=== PATIENT | male | born 1975 | race Hispanic/Latino ===

== ENCOUNTER 2021-10-08 19:22 | Emergency (ER) | payer OTHER, SELFPAY ==
[2021-10-08 19:32] VITALS: BP 108/67; PULSE 91; RESP 18; TEMP 37.4; O2SAT 100
--- NOTE | 2021-10-08 19:37 | ED.SKABFB ---
HPI - Skin/Abscess/Foreign Bdy General Chief complaint: Skin/Abscess/Foreign Body Stated complaint: right 3rd digit toe pain Time Seen by Provider: 10/08/21 19:37 Source: patient Mode of arrival: ambulatory Limitations: no limitations History of Present Illness HPI narrative: 46 y/o male with a history of diabetes, neuropathy, CKD presented for c/o right foot toe concern. Endorses right third toe blood blister for about 2 weeks, states he was in the shower today and it popped and blood quite a lot in the shower today. Since then he endorses concern about infection stating he lost all of his toes on the left foot in 2019 due to diabetes. Denies pain, due to neuropathy. Endorses occasional fevers and chills. Endorses decreased appetite, he states his blood sugar was 235 today and has not eaten. Taking medication as directed. Denies nausea, vomiting, dizziness, shortness of breath or cough. MD complaint: rash Related Data Home Medications Medication Instructions Recorded Confirmed fenofibrate nanocrystallized 145 mg PO DAILY 10/08/21 10/08/21 insulin lispro 1 sliding scale dose SUBCUT 10/08/21 10/08/21 DIRECTED lisinopril-hydrochlorothiazide 1 tablet PO DAILY 10/08/21 10/08/21 metformin 1,000 mg PO BID 10/08/21 10/08/21 Allergies Allergy/AdvReac Type Severity Reaction Status Date / Time No Known Allergies Allergy Verified 10/08/21 19:48 Review of Systems Review of Systems: CONSTITUTIONAL: Endorses fever, chills, sweats. EYES: Denies visual changes, redness, or discharge. ENT: Denies rhinorrhea, congestion, sore throat, or otalgia. CARDIOVASCULAR: Denies chest pain, palpitations, or edema. RESPIRATORY: Denies cough or dyspnea. GASTROINTESTINAL: Denies abdominal pain, nausea, vomiting, or diarrhea. GENITOURINARY: Denies dysuria or hematuria. SKIN: Wound right 3rd toe MUSCULOSKELETAL: Denies back pain, joint pain, or myalgia. NEUROLOGIC: Denies headache, numbness, tingling, or weakness. PSYCH: Denies depression or anxiety. PMFSH Comments At time of signature, I have reviewed and agree with nursing past medical, surgical, social and family history unless otherwise noted. Please see nursing chart for further information. There is no relevant family history pertinent to the presenting complaint Exam Narrative: GENERAL: Well-appearing HEAD: Normocephalic, atraumatic. EYES: conjunctivae clear, and EOMI. ENT: Mucous membranes moist. NECK: Supple. No lymphadenopathy CHEST: Clear to auscultation. No respiratory distress. HEART: Regular rate and rhythm. SKIN: Warm, dry.Right 3rd toe with black discoloration to distal phalanx and erythema and edema to the toe and MTP joint, foul odor, moderate bloody drainage, skin peeling. Pulse diminished to palpation EXT: left foot all toes surgically absent NEURO: Alert and oriented x3. PSYCH: Normal mood and affect Course Course Emergency Course: Patient is aware of diagnosis, understands and agrees to treatment plan. Anticipatory guidance given. Portions of this record may have been created with voice recognition software Level of Care: Express Care Visit Vital Signs Vital signs: Vital Signs Temperature 99.4 F 10/08/21 19:32 Pulse Rate 91 10/08/21 19:32 Respiratory Rate 18 10/08/21 19:32 Blood Pressure 108/67 10/08/21 19:32 Pulse Oximetry 100 10/08/21 19:32 Temperature 99.4 F 10/08/21 19:32 Pulse Rate 91 10/08/21 19:32 Respiratory Rate 18 10/08/21 19:32 Blood Pressure 108/67 10/08/21 19:32 Pulse Oximetry 100 10/08/21 19:32 Reviewed Transfer Transfered to: [facility] rationale: Pt is agreeable to transfer for further evaluation of the toe wound. Requests transfer to [facility] via private vehicle. Risks of transportation reviewed with pt including injury, worsening of condition and . v/u. Report called to [facility], spoke with Dr Clemens, accepting physician. Pt is in stable condition a
== END 2021-10-08 19:55 | disposition short-term general hospital (02) ==
PROVIDERS: Emergency Provider Nurse Practitioner Family
DX: E11.621 Type 2 diabetes mellitus with foot ulcer (principal); L97.519 Non-pressure chronic ulcer of other part of right foot with unspecified severity; Z79.4 Long term (current) use of insulin; Z79.84 Long term (current) use of oral hypoglycemic drugs; E11.22 Type 2 diabetes mellitus with diabetic chronic kidney disease; E11.40 Type 2 diabetes mellitus with diabetic neuropathy, unspecified; I12.9 Hypertensive chronic kidney disease with stage 1 through stage 4 chronic kidney disease, or unspecified chronic kidney disease; N18.9 Chronic kidney disease, unspecified
CPT/HCPCS: 99202; G0463

== ENCOUNTER 2021-10-08 20:09 | Observation (INO) | payer OTHER, SELFPAY ==
[2021-10-08] VITALS (22 sets, daily range): BP systolic 75–113; BP diastolic 57–73; PULSE 74–91; RESP 14–22; TEMP 36.4–37; O2SAT 93–100; BMI 31.1
--- NOTE | ~2021-10-08 | XR_ITS ---
EXAMINATION: XR foot RT min 3V DATE: 10/08/2021 20:45 INDICATION: Right foot pain TECHNIQUE: Dorsoplantar, lateral, and 2 oblique views of the right foot were obtained. COMPARISON: None. FINDINGS: There is mild osteoarthritis of multiple interphalangeal joints and at the first metatarsop halangeal joint. There is moderate to severe osteoarthritis of the second metatarsophalangeal joint. There are erosions of the second metatarsal head with mild dorsal subluxation of the second proximal phalanx with respect to the metatarsal. Calcified atherosclerosis is noted. There is soft tissue swel ling of the third toe. IMPRESSION: 1. Soft tissue swelling of the third toe without underlying osseous abnormality. 2. Erosions of the second metatarsal head with mild dorsal subluxation of the second proximal phalanx with respect to the second metatarsal. Reviewed, dictated and finalized at location F. IMPRESSION: 1. Soft tissue swelling of the third toe without underlying osseous abnormality . 2. Erosions of the second metatarsal head with mild dorsal subluxation of the s econd proximal phalanx with respect to the second metatarsal.
--- NOTE | 2021-10-08 21:24 | PM.IMHP ---
H&P: HPI History of Present Illness Date/Time: 10/08/21 21:24 Chief Complaint: Toe ulcer. Narrative: This is a 46-year-old male with past medical history significant for insulin-dependent diabetes mellitus, left diabetic foot status post transmetatarsal amputation patient presents in to the emergency room due to right 3rd toe ulcer. According to patient this has been there for the last week or so it started out as a blood blister that burst, denies any pain however patient states that he has neuropathy and does not feel any pain below his ankle, patient denies any fevers, rigors, chills, nausea, vomiting, trauma to the foot. Patient has been in his usual state of health he is from out of town from [place] and he is in the area doing work. Preliminary workup was significant for foot x-ray was significant for soft tissue swelling of the third toe without underlying osseous abnormality and erosions of the second metatarsal head with mild dorsal subluxation of the second proximal phalanx with respect to the second metatarsal. Patient has been admitted for further evaluation management and treatment. Review of Systems Constitutional: Constitutional: Denies chills, Denies fatigue, Denies fever(s), Denies frequent falls, Denies malaise, Denies night sweats, Denies poor appetite and Denies weakness Eyes: Eyes: Denies change in vision ENT: Denies dysphagia, Denies vertigo, Denies nasal congestion, Denies nasal discharge, Denies nasal obstruction and Denies odynophagia Cardiovascular: Cardiovascular: Denies chest pain, Denies pedal edema, Denies irregular heart rhythm, Denies leg edema, Denies lightheadedness, Denies radiating jaw, neck or arm pain, Denies palpitations, Denies dyspnea on exertion and Denies paroxysmal nocturnal dyspnea Respiratory: Respiratory: Denies cough Gastrointestinal: Gastrointestinal: Denies abdominal pain, Denies dyspepsia, Denies heartburn, Denies diarrhea, Denies nausea and Denies vomiting Genitourinary: Genitourinary: Denies dysuria Musculoskeletal: Comments: Right 3rd toe ulcer Integumentary/Breasts: Skin/Breast: Reports skin ulcer Neurologic: Denies focal weakness, Denies Sensory deficit (Neuro) and Denies weakness Psychiatric: Psychiatric: Reports no additional psychiatric complaints and Reports as per HPI Endocrine: Endocrine: Denies cold intolerance, Denies flushing, Denies heat intolerance, Denies polyphagia, Denies polydipsia, Denies polyuria and Denies palpitations Hematologic/Lymphatic: Hematologic/Lymphatic: Reports no additional hematologic/lymphatic complaints and Reports as per HPI Allergic/Immunologic: Allergic/Immunologic: Reports no additional allergic/immunologic complaints and Reports as per HPI PMFSH Past Medical History Medical History (Updated 10/09/21 @ 14:58 by Eric Parker MD) Diabetic infection of right foot (~09/2021) Diabetic ulcer of toe associated with diabetes mellitus due to underlying condition, with necrosis of muscle Social History Social History Years smoked: 0.5 Smoking status: Current every day smoker Tobacco type: cigarettes Second hand tobacco smoke exposure: Yes Alcohol intake: never Substance use: never Spiritual care concerns: No Meds Home Medications and Allergies Home Medications Medication Instructions Recorded Confirmed Type fenofibrate nanocrystallized 145 mg PO DAILY 10/08/21 10/09/21 History insulin lispro 1 sliding scale dose SUBCUT 10/08/21 10/09/21 History DIRECTED lisinopril-hydrochlorothiazide 1 tablet PO DAILY 10/08/21 10/09/21 History metformin 1,000 mg PO QACLUNCH 10/08/21 10/09/21 History Allergies Allergy/AdvReac Type Severity Reaction Status Date / Time No Known Allergies Allergy Verified 10/08/21 21:12 Vital Signs Vital Signs - 24 hr 10/08/21 20:22 10/08/21 20:32 10/08/21 20:33 Temperature 97.5 F L Pulse Rate 91 90 88 Respiratory Rate 18
[2021-10-08 21:34] LABS: Basophils Percent Auto 0.3 % (0.2-1.2); Eosinophils Percent Auto 0.3 % (0-4.4); Immature Granulocyte Absolute 0.03 K/mm3 (0.00-0.031); Immature Granulocyte Percent A 0.3 % (0-0.5); Lymphocytes Absolute Auto 1.52 K/mm3 (0.9-3.2); Lymphocytes Percent Auto 16.5 % (18.3-44.2); Mean Corpuscular HGB Conc 33.3 g/dl (32-36); Mean Corpuscular Volume 90.1 fl (80-100); Mean Platelet Volume 12.5 fl (7.4-10.4); Monocytes Percent Auto 10.6 % (2.6-8.5); Neutrophils Absolute Auto 6.6 K/mm3 (1.3-6.7); Platelet Count Result 206 k/mm3 (150-375); Red Blood Count 4.33 M/mm3 (4.6-6.20); Red Cell Distribution Width 11.9 % (11.5-14.5); White Blood Count 9.2 K/mm3 (4.5-10.0)
[2021-10-08 21:39] LABS: Add Urine Microscopic? YES; Amorphous Sediment Urine Few; Appearance Urine Cloudy (Clear); Bacteria Urine Trace /hpf; Bilirubin Urine Negative (Negative); Blood Urine 1+ (Negative); Color Urine Amber (Yellow); Glucose Urine UA 2+ mg/dL (Negative); Ketones Urine Negative (Negative); Leukocyte Esterase Ur Negative LEU/UL (Negative); Mucus Urine Rare /lpf; Nitrate Urine Negative (Negative); Protein Urine 3+ mg/dL (Negative); Specific Grav Ur 1.019 (1.001-1.035); Squamous Epithelial Cell Urine Rare /hpf (Few); Urobilinogen Urine Negative mg/dL (<2.0); WBC Urine 0-3 /hpf
[2021-10-08 21:48] LABS: Lactic Acid Reflex 1.2 mmol/L (0.7-2.0)
[2021-10-08 21:53] LABS: INR 1.2; Prothrombin Time 14.8 Seconds (11.1-14.7)
[2021-10-08 21:56] LABS: Alanine Aminotransferase 21 U/L (4-50); Albumin Level 3.6 g/dL (3.5-5.1); Alkaline Phosphatase 65 U/L (38-126); Anion Gap 9 mmol/L (8-16); Aspartate Amino Transferase 22 U/L (17-59); Bilirubin,Total 0.3 mg/dL (0.2-1.3); Blood Urea Nitrogen 64 mg/dL (9-20); Calcium 8.3 mg/dL (8.4-10.2); Carbon Dioxide 23 mmol/L (22-30); Chloride 102 mmol/L (98-107); Estimated CRCL calculation 27 ml/min; Estimated Glomerular Filt Rate 16; Glucose 127 mg/dL (65-110); Potassium 4.1 mmol/L (3.4-5.0); Sodium 134 mmol/L (137-145)
--- NOTE | 2021-10-08 22:20 | ED.GENADULT ---
HPI - General Adult General Chief complaint: Wound/Laceration Stated complaint: infection on right foot Time Seen by Provider: 10/08/21 20:35 Source: patient Mode of arrival: ambulatory Limitations: no limitations History of Present Illness HPI narrative: 46-year-old with a history of diabetes, CKD hypertension s/p multiple toe amputations on the left here with complaints of ulcer on the right third toe for past 1 week. 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 Patient initially went to urgent care and was later referred here to the ER. Patient also states that he has been having fever and chills on and off for past 1 week. He denies any trauma to the foot. He states that it started as a blister and now it is all infected. Onset (ago): week(s) (1) Location: right and lower extremity Relieving factors: none Exacerbating factors: none Associated symptoms: fever/chills Treatments prior to arrival: none Related Data Home Medications Medication Instructions Recorded Confirmed fenofibrate nanocrystallized 145 mg PO DAILY 10/08/21 10/08/21 insulin lispro 1 sliding scale dose SUBCUT 10/08/21 10/08/21 DIRECTED lisinopril-hydrochlorothiazide 1 tablet PO DAILY 10/08/21 10/08/21 metformin 1,000 mg PO BID 10/08/21 10/08/21 Allergies Allergy/AdvReac Type Severity Reaction Status Date / Time No Known Allergies Allergy Verified 10/08/21 21:12 Review of Systems Review of Systems: All systems reviewed & are unremarkable except as noted in HPI and below Constitutional: Constitutional: Reports no additional constitutional complaints Eyes: Eyes: Reports no additional eye complaints ENT: Reports system reviewed and no additional complaints, except as documented Cardiovascular: Cardiovascular: Reports no additional cardiovascular complaints Respiratory: Respiratory: Reports no additional respiratory complaints Gastrointestinal: Gastrointestinal: Reports no additional gastrointestinal complaints Musculoskeletal: Musculoskeletal: Reports as per HPI Integumentary/Breasts: Skin/Breast: Reports as per HPI Neurologic: Reports system reviewed and no additional complaints, except as documented Exam Narrative: GENERAL: Well-appearing, well-nourished, and in no acute distress. HEAD: Normocephalic, atraumatic. EYES: PERRLA and EOMI. NECK: Supple. CHEST: Clear to auscultation. No respiratory distress. HEART: Regular rate and rhythm. No murmur heard. Normal peripheral pulses. ABDOMEN: Soft, nontender, nondistended, normal active bowel sounds. EXTREMITIES: Normal range of motion. No edema. Right foot the third toe has an abscess foul-smelling. SKIN: Warm, dry, no rash. NEURO: No focal deficits. Alert and oriented x3. PSYCH: Normal mood and affect. Course Course Emergency Course: Inform patient about his lab work. Agreed for admission we will start him on IV antibiotics. Discussed with Dr. Roman agreed to admit the patient. Vital Signs Vital signs: Vital Signs Temperature 36.4 C L 10/08/21 20:22 Pulse Rate 91 10/08/21 20:22 Respiratory Rate 18 10/08/21 20:22 Blood Pressure 75/57 L 10/08/21 20:22 Pulse Oximetry 100 10/08/21 20:22 Temperature 36.4 C L 10/08/21 20:22 Pulse Rate 89 10/08/21 20:46 Respiratory Rate 19 10/08/21 20:45 Blood Pressure 111/73 10/08/21 20:46 Pulse Oximetry 97 10/08/21 20:46 Medical Decision Making Vital Signs Vital Signs: Vital Signs Temperature 36.4 C L 10/08/21 20:22 Pulse Rate 91 10/08/21 20:22 Respiratory Rate 18 10/08/21 20:22 Blood Pressure 75/57 L 10/08/21 20:22 Pulse Oximetry 100 10/08/21 20:22 Temperature 36.4 C L 10/08/21 20:22 Pulse Rate 89 10/08/21 20:46 Respiratory Rate 19 10/08/21 20:45 Blood Pressure 111/73 10/08/21 20:46 Pulse Oximetry 97 10/08/21 20:46 Lab Data Result diagrams: 10/08/21 21:19 10/08/21 21:19 Labs: Lab Results 10/08/21 0
[2021-10-09] VITALS: BP 105/66; PULSE 79; RESP 18; TEMP 36.4; O2SAT 99
[2021-10-09 04:00] VITALS: BP 121/75; PULSE 74; RESP 18; TEMP 36.5; O2SAT 97
[2021-10-09] MEDS: SODIUM CHLORIDE 0.9% IV 1,000 ML 125 ML IV CONT ×3 (05:58→20:24)
[2021-10-09 06:20] LABS: Anion Gap 8 mmol/L (8-16); Blood Urea Nitrogen 65 mg/dL (9-20); Calcium 7.7 mg/dL (8.4-10.2); Carbon Dioxide 23 mmol/L (22-30); Chloride 102 mmol/L (98-107); Estimated CRCL calculation 25 ml/min; Estimated Glomerular Filt Rate 15; Glucose 204 mg/dL (65-110); Potassium 4.2 mmol/L (3.4-5.0); Sodium 133 mmol/L (137-145)
[2021-10-09 07:43] LABS: Glucose Point of Care 177 mg/dl (65-105)
[2021-10-09] MEDS: lisinopriL 20 MG TABLET PO (09:12)
[2021-10-09] MEDS: ENOXAPARIN 40 MG/0.4 ML SYRINGE SUB-Q (09:12)
[2021-10-09] MEDS: FENOFIBRATE NANOCRYSTALLIZED 145 MG TABLET PO (09:12)
[2021-10-09] MEDS: hydroCHLOROthiazide 25 MG TABLET PO (09:12)
--- NOTE | 2021-10-09 11:45 | PM.IMPN ---
Progress Note: A&P Assessment and Plan (1) Diabetic foot ulcer: Qualifiers: Diabetes mellitus type: type 2 Diabetic foot ulcer location: toe Laterality: right Non-pressure ulcer stage: unspecified non-pressure ulcer stage Qualified Code(s): E11.621 - Type 2 diabetes mellitus with foot ulcer; L97.519 - Non-pressure chronic ulcer of other part of right foot with unspecified severity Code(s): E11.621 - Type 2 diabetes mellitus with foot ulcer; L97.509 - Non-pressure chronic ulcer of other part of unspecified foot with unspecified severity Status: Acute Assessment and Plan: Right third toe wound Ortho on board IV vanco and Primaxin WBC 9.2 foot xray shows Soft tissue swelling of the third toe without underlying osseous abnormality. Erosions of the second metatarsal head with mild dorsal subluxation of the second proximal phalanx with respect to the second metatarsal. Trend labs Adjust therapy as indicated Blood cultures pending Ortho has stated patient is able to be DC'd. 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 (2) T2DM (type 2 diabetes mellitus): Code(s): E11.9 - Type 2 diabetes mellitus without complications Status: Acute Assessment and Plan: Glucose 204 Hold metformin since renal function is poor ISS Accu cheks AC/HS trend glucose adjust therapy as indicated Will switch patient to glipizide 2.5mg PO and instructed him to maintain and check his blood sugar (3) HTN (hypertension): Code(s): I10 - Essential (primary) hypertension Status: Acute Assessment and Plan: Current blood pressure 124/70 Stop home lisinopril and HCTZ Trend BP Adjust therapy as indicated Changed lisinopril and HCTZ to amlodipine 5mg PO daily (4) Chronic kidney disease: Code(s): N18.9 - Chronic kidney disease, unspecified Status: Acute Assessment and Plan: BUN/Cr 65/4.4 Trend labs Avoid nephrotoxic medication 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 Patient stated that this has all been going on for about a week. Patient is and placed on IV antibiotics. Patient did state that he was having some sweats and fevers throughout the night. He also stated that he can tell when he starts to have an infection because his glucose will elevate. He denies any chest pain, shortness of breath, nausea, vomiting, diarrhea, constipation, weakness, fatigue. Talked to the patient about his medications. Explained that he will not be able to go home on metformin and lisinopril. I did tell him to keep an eye on his glucose. Recommended that he take the glipizide in the am and then check his glucose at dinner time and if over 250 to take another dose. He should also keep track of his glucose and present a list to his PCP for further instructions. Patient's was updated with the plan, all questions were answered, and patient agrees with plan at this time. Review of Systems Review of Systems: All systems reviewed & are unremarkable except as noted in HPI and below Exam Const: General: cooperative, no acute distress, well developed, alert and awake Nutritional Appearance: well nourished, obese and overweight Orientation/consciousness: oriented to person, oriented to place, oriented to time and patient oriented x3 Limitations: physical limitations HENMT: Head: normal to inspection Ears: hearing grossly normal bilaterally General nose exam: Normal external nose present Mouth: Yes Normal oral and palatal mucosa present, Yes lip normal and Yes tongue normal Teeth and gingiva: abnormal tooth and a
[2021-10-09 12:18] LABS: Glucose Point of Care 262 mg/dl (65-105)
[2021-10-09] MEDS: INSULIN ASPART (*BKC) 100 UNITS/ML SUB-Q ×2 (12:19→17:07)
[2021-10-09 13:53] VITALS: BP 124/70; PULSE 80; RESP 18; TEMP 35.9; O2SAT 97
--- NOTE | 2021-10-09 14:16 | PM.CNOR ---
Assessment and Plan Assessment and plan (1) Diabetic infection of right foot: Onset Date: ~09/2021 Code(s): E11.628 - Type 2 diabetes mellitus with other skin complications; L08.9 - Local infection of the skin and subcutaneous tissue, unspecified Status: Acute Assessment and Plan: patient seen and examined. Right foot infected distal toe and toenail. May have started as an ingrown toenail which now progressed to the tuft of the toe. No evidence of erosion on radiographs. Toe and nail debrided at the bedside. The medial wound does probe to the distal phalanx. Treatment options, risks, benefits and alternatives discussed with the patient. Patient is here from out of town for work reasons. He has a primary care physician and a public employment mediator that he sees for his diabetes and diabetic foot care. He is status post transmetatarsal amputation on the left side. After the debridement of the right toe I would recommend course of treatment with antibiotics with daily dressing changes with Betadine and close observation. He may get better with this. If he does not he may require surgical treatment for the 3rd toe. He verbalized understanding and has declined to stay here in the hospital or to have surgery here. He would like to be discharged and return home to follow up with his public employment mediator. Recommend daily dressing changes with Betadine. Postoperative shoe for offloading. Limit activity and return home as quickly as possible with follow-up with the public employment mediator as well as his primary care physician for diabetic control. Return [facility] emergency room for any continued or new problems. (2) Diabetic ulcer of toe associated with diabetes mellitus due to underlying condition, with necrosis of muscle: Code(s): E08.621 - Diabetes mellitus due to underlying condition with foot ulcer; L97.503 - Non-pressure chronic ulcer of other part of unspecified foot with necrosis of muscle Status: Acute History of Present Illness HPI Consult date: 10/09/21 Requesting physician: Eric Ovalles MD Chief complaint: diabetic foot ulcer Narrative: 46-year-old gentleman admitted through the emergency room last night for right diabetic foot infection. Patient has a history of type 2 diabetes for greater than the past 10 years with recently noted poor control. His most recent hemoglobin A1c by his report was greater than 11 in July. 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 Patient states that he in [employer] job sites and normally wears steel-toed shoes on the job site. He noted changes to the right 3rd toe approximately 2 weeks ago. He did not do much about it due to his peripheral neuropathy and being insensate. He did not have any pain but continue to observe it. Yesterday he was noted to have increased swelling redness and drainage. He talk to his primary care physician who recommended he be evaluated and started on antibiotics. Initially seen at the urgent care and then presented to the emergency room here at [facility] and subsequently admitted and started on intravenous antibiotics. I have been asked to see him for the toe. He has no pain. He does have history of previous left toe infections with osteomyelitis which required transmetatarsal amputation. The surgery was done in [place]. He still follows up with the provider who performed that surgery. He states that the toenails on the right side will be come dystrophic and occasionally fall off or he removes them from time to time. Review of Systems Review of Systems: All systems reviewed & are unremarkable except as noted in HPI and below Constitutional: Constitutional: Reports no additional constitutional complaints Eyes: Eyes: Reports no additional eye complaints ENT: Reports system reviewed and no additional complaints, except as documented Cardiovascular: Cardiovascular: Reports no additional cardiovascular complaints Respiratory: Respiratory:
--- NOTE | 2021-10-09 15:00 | P.OP_ITS ---
Procedure Note - Detailed Date of Procedure 10/09/21 Pre-op Diagnosis diabetic foot ulcer , diabetic infected toenail Post-op Diagnosis Same Procedure Performed complete avulsion of right 3rd toenail, excisional debridement of skin, subc utaneous tissue right toe. Surgeon Eric Parker MD Anesthesia None Indications 46-year-old gentleman with a right diabetic 3rd toe infection and ingrown infected toenail. Patient with diabetes and peripheral neuropathy. Admitted for toe infection. Requires debridement. No anesthesia given as patient is insensate. Findings Unstable nail plate right 3rd toe. Medial aspect of nail bed probes to distal phalanx. 2 cm ulcer distal tip of the toe with skin slough. Does not probe below the subcutaneous tissue. Description of Procedure Patient identified and informed consent given. Right 2nd toe prepped with alcohol prep solution. Toenail and nail folds removed with gauze and passed off. Pickups used to debride the skin, subcutaneous tissue from the tip of the toe. Loose and devitalized skin and tissue excised and removed. Sterile dressing applied. Estimated Blood Loss 1 Tourniquet Time 0 Urine Output 0 Drains No Packing No Pathology None sent Complications None Condition Stable Disposition Other ( Performed at bedside inpatient room.)
[2021-10-09 16:32] LABS: Glucose Point of Care 208 mg/dl (65-105)
[2021-10-09] MEDS: ACETAMINOPHEN 325 MG TABLET 650 MG PO (17:07)
[2021-10-09 21:00] LABS: Glucose Point of Care 287 mg/dl (65-105)
[2021-10-09 21:19] VITALS: O2SAT 98
[2021-10-09 21:37] VITALS: BP 151/78; PULSE 71; RESP 16; TEMP 36.5; O2SAT 98
[2021-10-10] MEDS: SODIUM CHLORIDE 0.9% IV 1,000 ML 125 ML IV CONT (05:18)
[2021-10-10 05:36] VITALS: BP 149/79; PULSE 78; RESP 16; TEMP 37.1; O2SAT 96
[2021-10-10 06:17] LABS: Basophils Percent Auto 0.3 % (0.2-1.2); Eosinophils Absolute Auto 0.1 K/mm3 (0-0.3); Eosinophils Percent Auto 1.1 % (0-4.4); Hematocrit 36.3 % (42.0-52.0); Hemoglobin 12.1 g/dL (14.0-18.0); Immature Granulocyte Absolute 0.02 K/mm3 (0.00-0.031); Immature Granulocyte Percent A 0.3 % (0-0.5); Lymphocytes Absolute Auto 1.56 K/mm3 (0.9-3.2); Mean Corpuscular HGB Conc 33.3 g/dl (32-36); Mean Corpuscular Hemoglobin 30.3 pg (26-34); Mean Corpuscular Volume 90.8 fl (80-100); Mean Platelet Volume 12.4 fl (7.4-10.4); Monocytes Absolute Auto 0.9 K/mm3 (0.1-0.6); Monocytes Percent Auto 12.4 % (2.6-8.5); Neutrophils Absolute Auto 4.5 K/mm3 (1.3-6.7); Neutrophils Percent Auto 63.9 % (45.5-73.1); Platelet Count Result 204 k/mm3 (150-375); Red Cell Distribution Width 11.9 % (11.5-14.5); White Blood Count 7.1 K/mm3 (4.5-10.0)
[2021-10-10 06:40] LABS: Alanine Aminotransferase 18 U/L (4-50); Alkaline Phosphatase 65 U/L (38-126); Anion Gap 5 mmol/L (8-16); Aspartate Amino Transferase 17 U/L (17-59); Bilirubin,Total 0.2 mg/dL (0.2-1.3); Blood Urea Nitrogen 54 mg/dL (9-20); Calcium 8.1 mg/dL (8.4-10.2); Carbon Dioxide 26 mmol/L (22-30); Chloride 108 mmol/L (98-107); Estimated CRCL calculation 35 ml/min; Estimated Glomerular Filt Rate 22; Glucose 183 mg/dL (65-110); Magnesium 2.4 mg/dL (1.6-2.3); Potassium 4.3 mmol/L (3.4-5.0); Sodium 139 mmol/L (137-145)
[2021-10-10 08:08] LABS: Glucose Point of Care 171 mg/dl (65-105)
[2021-10-10] MEDS: FENOFIBRATE NANOCRYSTALLIZED 145 MG TABLET PO (08:18)
[2021-10-10] MEDS: glipiZIDE 2.5 MG TABLET PO (08:19)
[2021-10-10] MEDS: amLODIPine BESYLATE 5 MG TABLET PO (08:19)
[2021-10-10] MEDS: ENOXAPARIN 40 MG/0.4 ML SYRINGE SUB-Q (08:19)
--- NOTE | 2021-10-10 12:17 | PM.DS ---
DS: Admitting Diagnosis Discharge Date 10/10/21 1600 Admitting Diagnosis Diabetic foot ulcer DS: Discharge Diagnosis Discharge Diagnosis (1) Diabetic foot ulcer: Qualifiers: Diabetes mellitus type: type 2 Diabetic foot ulcer location: toe Laterality: right Non-pressure ulcer stage: unspecified non-pressure ulcer stage Qualified Code(s): E11.621 - Type 2 diabetes mellitus with foot ulcer; L97.519 - Non-pressure chronic ulcer of other part of right foot with unspecified severity Code(s): E11.621 - Type 2 diabetes mellitus with foot ulcer; L97.509 - Non-pressure chronic ulcer of other part of unspecified foot with unspecified severity Status: Acute Assessment and Plan: 46 year old male with history of DM, prior left TKA (2020), hypertension, and CKD who presented to us for right 3rd toe wound. Foot x-ray shows soft tissue swelling of the toe without underlying osseous abnormality. Erosions at the 2nd metatarsal head with mild subluxation of the 2nd proximal phalanx with respect to the 2nd metatarsal head. Tylenol at the bedside and they discussed treatment options risks, benefits, and alternatives with the patient who stated he preferred to follow-up at home, in [place], with his PCP and price checker. Orthopedics recommended a course of antibiotics with daily dressing changes with Betadine both observation. Patient may later required surgical treatment for the 3rd toe. Be advised postoperative shoe for offloading, limited activity, and strict diabetic control. He was started on cefepime and vancomycin empirically during his stay, and we will transition him to oral antibiotics. Augmentin 500/125 BID x 7 days and Doxycycline 100mg Daily x 7 days Daily dressing changes with Betadine. Follow up with price checker as soon as possible. Cultures pending, will follow with these. (2) T2DM (type 2 diabetes mellitus): Code(s): E11.9 - Type 2 diabetes mellitus without complications Status: Acute Assessment and Plan: Patient has stage IV CKD, BUN/Cr 54/ 3.1 (baseline). We discontinued Patient's metformin due to poor kidney functions. Discontinue Metformin due to GFR of 22. Start patient on Glipizide 2.5 daily. Continue daily fingersticks and record your blood sugars. Follow a diabetic diet. Keep your appointment with a diabetic rn provider relations as scheduled at home Follow up with your PCP in 2 weeks with your blood sugar readings. He will make adjustments as needed. Labs: LFT, A1C, Lipid Panel for patient to schedule at his leisure after discharge. (3) HTN (hypertension): Code(s): I10 - Essential (primary) hypertension Status: Acute Assessment and Plan: Discontinue lisinopril/Hctz Start Amlodipine, follow up in 1 month with your primary care provider. Take blood pressures 3 x weekly and bring this with you to your PCP. (4) Chronic kidney disease: Code(s): N18.9 - Chronic kidney disease, unspecified Status: Acute Assessment and Plan: Patient has stage IV CKD, BUN/Cr 54/ 3.1 (baseline). He follows with a instrumentation engineering technician in [place] and will schedule follow up. DS: Summary Hospital Course Reason for hospitalization: Right 3rd toe diabetic ulcer Hospital Course: See above for hospital course. Status at Discharge Overall status at discharge: patient is progressing back to baseline Time Spent with Patient Time attestation: Total time spent providing and/or coordinating discharge services: 35 Time spent: Greater than 30 minutes Exam Narrative: GENERAL APPEARANCE: Alert and oriented x 3, in no apparent distress. HEENT: PERRL, EOMI. Sclerae anicteric. Moist mucous membranes. NECK: Supple. No JVD or obvious carotid bruits. RESPIRATORY: Respirations are nonlabored. Breath sounds are equal and clear bilaterally. No wheezes, Rhonchi, or rales. CARDIOVASCULAR: Regular rate and rhythm with normal S1-S2. No murmurs, gallops, or r
[2021-10-10 12:18] LABS: Glucose Point of Care 188 mg/dl (65-105)
[2021-10-10 14:00] VITALS: BP 117/82; PULSE 78; RESP 18; TEMP 36.2; O2SAT 97
== END 2021-10-10 14:45 | disposition home or self-care (01) ==
LOC: ANHED 22:21 → ANH3MEDSUR 10-09
PROVIDERS: Nurse Practitioner; Student in an Organized Health Care Education/Training Program; Admitting Provider Internal Medicine; Emergency Provider Family Medicine; Visit Provider Internal Medicine
DX: E11.621 Type 2 diabetes mellitus with foot ulcer (principal); L97.509 Non-pressure chronic ulcer of other part of unspecified foot with unspecified severity; L08.9 Local infection of the skin and subcutaneous tissue, unspecified; I12.9 Hypertensive chronic kidney disease with stage 1 through stage 4 chronic kidney disease, or unspecified chronic kidney disease; N18.9 Chronic kidney disease, unspecified; E11.22 Type 2 diabetes mellitus with diabetic chronic kidney disease; E11.40 Type 2 diabetes mellitus with diabetic neuropathy, unspecified; F17.210 Nicotine dependence, cigarettes, uncomplicated; Z79.4 Long term (current) use of insulin; Z89.432 Acquired absence of left foot
CPT/HCPCS: 11730; 11042; 36415; 73630; 80048; 80053; 81001; 82948; 83605; 83735; 85025; 85610; 86140; 87040; 96365; 96366; 96367; 96372; 99285; A9270; G0378; J0743; J1650; J1815; J3370; J7030